=== PATIENT | female | born 1995 | race Caucasian/White ===

== ENCOUNTER 2018-12-08 14:14 | Outpatient (CLI) | payer MEDICARE, MEDICAID ==
[~2018-12-08 14:14] MED LIST: TEG100T PO
== END 2018-12-08 23:59 | disposition home or self-care (01) ==
LOC: RAD 14:14
PROVIDERS: ATTEND Family Medicine
DX: G40.909 Epilepsy, unspecified, not intractable, without status epilepticus (principal)
CPT/HCPCS: 95816

== ENCOUNTER 2022-11-11 05:20 | Day surgery (SDC) | payer MEDICARE, MEDICAID ==
[2022-11-04 11:18] LABS: BASOPHILS # (AUTO) 0.1 X10'3 (0-0.2); BASOPHILS % (AUTO) 1.4 % (0-1); EOSINOPHILS # (AUTO) 0.1 X10'3 (0-0.9); EOSINOPHILS % (AUTO) 1.2 % (0-6); LYMPHOCYTES # (AUTO) 1.9 X10'3 (1.1-4.8); LYMPHOCYTES % (AUTO) 40.7 % (21-51); MEAN CORPUSCULAR HGB CONC 34.6 g/dL (33.0-36.5); MEAN CORPUSCULAR VOLUME 92.7 FL (78-98); MEAN PLATELET VOLUME 8.1 FL (7.4-10.4); MONOCYTES # (AUTO) 0.4 X10'3 (0-0.9); MONOCYTES % (AUTO) 9.1 % (2-12); NEUTROPHILS # (AUTO) 2.2 X10'3 (1.8-7.7); NEUTROPHILS % (AUTO) 47.6 % (42-75); PRE OP HEMATOCRIT 42.6 % (35.0-45.0); PRE OP HEMOGLOBIN 14.7 g/dL (12.0-16.0); PRE OP PLATELET COUNT 247 X10'3 (140-440); PRE OP WHITE BLOOD COUNT 4.7 10'3 (4.8-10.8); RED BLOOD COUNT 4.59 X10'6 (4.20-5.60); RED CELL DISTRIBUTION WIDTH 13.4 % (11.5-14.5)
[2022-11-04 12:06] LABS: ALBUMIN 3.5 G/DL (3.4-5.0); ALBUMIN/GLOBULIN RATIO 1.1 (1.1-1.5); ALKALINE PHOSPHATASE 65 IU/L (46-116); BLOOD UREA NITROGEN 13 MG/DL (7-18); BUN/CREATININE RATIO 18.1 (10.0-20.0); CALCIUM 9.4 MG/DL (8.5-10.1); CHLORIDE 104 MMOL/L (99-107); CREATININE 0.72 MG/DL (0.40-0.90); PRE OP ALT 33 U/L (30-65); PRE OP ANION GAP 6 (8-16); PRE OP AST 20 U/L (10-37); PRE OP BILIRUB, TOTAL 0.2 MG/DL (0.0-1.0); PRE OP GLUCOSE 91 MG/DL (70-104); PRE OP POTASSIUM 4.3 MMOL/L (3.4-5.1); PRE OP SODIUM 140 MMOL/L (135-145); TOTAL CARBON DIOXIDE 29.6 MMOL/L (24-32); TOTAL PROTEIN 6.8 G/DL (6.4-8.2); eGFR > 90 ML/MIN
[2022-11-04 12:31] LABS: HCG SERUM QL NEGATIVE
[2022-11-11] VITALS (10 sets, daily range): BP systolic 91–106; BP diastolic 62–74; PULSE 70–75; RESP 15–19; TEMP 97.8; O2SAT 14–100
[~2022-11-11] VITALS: Ht 160 cm; Wt 58.1 kg
[~2022-11-11 05:20] MED LIST changes: +LACO200T2 PO; +LAMO200T2 PO; +LEVO1TAB6 PO; -TEG100T PO; +ringers solution, lacted 1,000 ML IV SCH
[2022-11-11] MEDS ORDERED: famotidine 20mg tablet PO ONE (05:30)
[2022-11-11] MEDS ORDERED: cefazolin 2gm/D5W 100mL 100 ML IV ONE (05:30)
[2022-11-11] MEDS ORDERED: LIDOcaine 1% 30ml preserv. free vial ONE (06:43)
[2022-11-11] MEDS ORDERED: BUPIVAcaine/PF 2.5 mg/ml (0.25%) 30ml vial ONE (06:43)
[2022-11-11] MEDS ORDERED: sevoflurane 250ml liquid IH ONE (07:14)
[2022-11-11] MEDS ORDERED: midazolam 1 mg/ML 2ml injection ONE (07:20)
[2022-11-11] MEDS ORDERED: fentaNYL/PF 50MCG/1 ML 2ML syringe ONE (07:20)
[2022-11-11] MEDS ORDERED: propofol inj 20 ML IV ONE (07:21)
[2022-11-11] MEDS ORDERED: dexamethasone sod phosphate 4mg/ml inj. ONE (07:26)
[2022-11-11] MEDS ORDERED: ondansetron/PF 4mg/2ml inj ONE (07:49)
[2022-11-11] MEDS ORDERED: ondansetron/PF 4mg/2ml inj IV PRN (07:50)
[2022-11-11] MEDS ORDERED: meperidine/PF 25mg/ml syringe IV PRN ×3 (07:50)
[2022-11-11] MEDS ORDERED: morphine 2 MG/ML inj. syringe IV PRN (07:50)
[2022-11-11] MEDS ORDERED: proCHLORperazine 10 MG/2 ml inj IV PRN (07:50)
[2022-11-11] MEDS ORDERED: morphine 4 MG/ML inj SYRINge IV PRN (07:50)
[2022-11-11] MEDS ORDERED: ringers solution, lacted 1,000 ML IV SCH (07:50)
--- NOTE | 2022-11-11 08:04 | NUR ---
Received from OR via [facility], accompanied by Anesthesiologist DR GOMEZ and report given by Anesthesiologist AND CHIEF RELAY TESTER. PT DROWSY, DENIES PAIN, ABDOMEN W/SMALL TELFA DRSG COVERING INCISION CDI. Addendum: 11/11/22 at 0832 by Leslee Liao RN Amended: Links added.
[2022-11-11] MEDS ORDERED: HYDROcodone/acetaminophen 5mg/325mg tablet PO PRN (08:20)
--- NOTE | 2022-11-11 09:34 | NUR ---
PT UP AND ABLE TO AMBULATE SAFELY, NORCO GIVEN FOR ABD PAIN, PT TOLERATING PO. D/C INSTRUCTIONS GIVEN AND GONE OVER W/PT WHO VERBALIZED UNDERSTANDING. PT DC/D TO HOME VIA W/C TO PRIVATE VEHICLE W/O INCIDENT. Addendum: 11/11/22 at 0949 by Leslee Liao RN Amended: Links added.
== END 2022-11-11 09:34 | disposition home or self-care (01) ==
LOC: UNDOADMIN 05:20 → PAS 05:20 → PAS IN 05:20 → EDSTATUS 09:00 → PAS 09:34
PROVIDERS: ATTEND Surgery
DX: K43.6 Other and unspecified ventral hernia with obstruction, without gangrene (principal); F41.9 Anxiety disorder, unspecified; F32.A Depression, unspecified; G40.909 Epilepsy, unspecified, not intractable, without status epilepticus; Z79.899 Other long term (current) drug therapy; Z90.49 Acquired absence of other specified parts of digestive tract; F17.210 Nicotine dependence, cigarettes, uncomplicated; Z72.89 Other problems related to lifestyle; Z98.890 Other specified postprocedural states
CPT/HCPCS: 36415; 49592; 80053; 82948; 84703; 85025; J0690; J1100; J2250; J2405; J2704; J3010; J3490; J7120; Z7512; A4215; A4618; A7000